=== PATIENT | female | born 1940 | race Caucasian/White ===

== ENCOUNTER → 2016-10-24 | Outpatient (CLI) | payer MEDICARE, OTHER ==
[~2016-10-24] MED LIST: ACIPHEX; ACIPHEX20 MG PO; ALPRAZOLAM0.5 MG PO; AMBIEN 5MG TABLE5 MG PO; AMBIEN5 MG PO; ATORVASTATIN; CALCIUM; CEFTIN 250250 MG/TAB PO; CEFTIN500 MG PO; CRANBERRY1 CAP PO; FLEXERIL5 MG PO; GLUCOSAMINE PO; INDERAL LA120 MG PO; LEVAQUIN 250MG250 MG PO; LEVAQUIN 750MG750 MG PO; LIPITOR 10MG10 MG PO; MACROBID 1100 MG/CAP PO; MULTIPLE VITAMI1 CAP PO; MULTIVITAMIN FO1 CAP PO; NORCO 325 MG-51 TAB PO; PRILOTC PO; PROPRANOLOL PO; PYRIDIUM200 M1 PO; TYLENOL #3 301 UDTAB PO; XANAX 0.5MG0.5 MG PO; XANAX0.5 MG PO; ZANTAC; ZANTAC 7575 MG PO; ZOFRAN 4MG T4 MG/TAB PO; citracal PO
== END ==
LOC: MC.RAD 09:38
DX: Z12.31 Encounter for screening mammogram for malignant neoplasm of breast (principal)

== ENCOUNTER → 2017-06-08 | Outpatient (CLI) | payer MEDICARE, OTHER | LOC: COL.RAD 07:57 | DX: K57.30 Diverticulosis of large intestine without perforation or abscess without bleeding (principal); M47.819 Spondylosis without myelopathy or radiculopathy, site unspecified | CPT/HCPCS: Q9967 ==

== ENCOUNTER 2017-06-23 15:19 | Emergency (ER) | payer MEDICARE, OTHER ==
[~2017-06-23] VITALS: Ht 157.5 cm; Wt 62.7 kg
[2017-06-23 15:20] VITALS: TEMP 98.1
[2017-06-23 15:58] LABS: BASO % 0.3 % (0.0-2.0); EOS # 0.1 (0.0-0.7); EOS % 0.7 % (0-4.0); GRAN # 10.3 (1.4-6.5); GRAN % 75.5 % (42.2-75.2); HEMATOCRIT 39.6 % (37.0-47.0); LYMPH # 2.4 (1.2-3.4); LYMPH % 17.8 % (20.0-51.0); MEAN CELL VOLUME 82 fl (80.0-100.0); MEAN CORPUSCULAR HEMOGLOBIN 27 pg (27.0-31.0); MEAN CORPUSCULAR HGB CONC 33 g/dl (33.0-37.0); MEAN PLATELET VOLUME 10.7 fl (7.4-10.4); MONO # 0.7 (0.1-0.6); MONO % 5.3 % (1.7-9.3); PLATELET COUNT 262 K/mm3 (130-400); RED BLOOD COUNT 4.82 M/mm3 (4.10-5.30); WHITE BLOOD COUNT 13.7 K/mm3 (4.8-10.8)
[2017-06-23 16:10] LABS: COLLECTION METHOD CLEAN CATCH
[2017-06-23 16:14] LABS: ADJUSTED CALCIUM 9.6 mg/dL (8.4-10.2); ALBUMIN 4.4 gm/dL (3.5-5.0); BILIRUBIN,TOTAL 1.6 mg/dL (0.0-1.0); CALCIUM 9.9 mg/dL (8.4-10.2); CREATININE, serum 0.59 mg/dL (0.52-1.25); POTASSIUM 3.9 mmol/L (3.4-5.0); TOTAL PROTEIN 7.5 gm/dL (6.4-8.2)
[2017-06-23 16:21] LABS: MUCOUS Present /lpf; PH 5 (5-8); SQUAMOUS EPITHELIAL 0-2 /hpf; URINE APPEARANCE Clear; URINE BACTERIA None Seen /hpf; URINE BILIRUBIN Negative (NEGATIVE); URINE BLOOD Negative (NEGATIVE); URINE COLOR Yellow; URINE GLUCOSE 1+ (NEGATIVE); URINE KETONE Negative (NEGATIVE); URINE LEUKOCYTE ESTERASE Negative (NEGATIVE); URINE PROTEIN(semi-quant) Negative (NEGATIVE); URINE RBC 0-2 /hpf; URINE UROBILINOGEN Negative (NEGATIVE); URINE WBC 0-2 /hpf
[2017-06-23] MEDS ORDERED: CALCIUM CITRATE1 TA7 PO (16:50)
[2017-06-23] MEDS ORDERED: ONE DAILY1 TA1 PO (16:51)
[2017-06-23] MEDS ORDERED: OSTEO-BI-FLEX 21 TAB PO (16:51)
[2017-06-23] MEDS ORDERED: FLAGYL500 MG PO (17:10)
[2017-06-23] MEDS ORDERED: CIPRO 500MG TA500 MG PO (17:10)
[2017-06-23] MEDS ORDERED: NORCO 325 MG-51 TAB PO (17:10)
[2017-06-23] MEDS ORDERED: ZOFRAN 4MG T4 MG/TAB PO (17:10)
[2017-06-23 17:15] VITALS: BP 145/86
[2017-06-23 17:48] VITALS: PULSE 74
== END 2017-06-23 17:48 | disposition home or self-care (01) ==
LOC: COL.ER 15:19
PROVIDERS: Emergency Medicine
DX: K57.92 Diverticulitis of intestine, part unspecified, without perforation or abscess without bleeding (principal); K21.9 Gastro-esophageal reflux disease without esophagitis; F41.9 Anxiety disorder, unspecified; Z90.49 Acquired absence of other specified parts of digestive tract
CPT/HCPCS: J7030; Q9967

== ENCOUNTER 2017-06-29 09:11 | Emergency (ER) | payer MEDICARE, OTHER ==
[~2017-06-29] VITALS: Ht 157.5 cm; Wt 62.7 kg
[~2017-06-29 09:11] MED LIST changes: +CALCIUM CITRATE1 TA7 PO; +CIPRO 500MG TA500 MG PO; +FLAGYL500 MG PO; +ONE DAILY1 TA1 PO; +OSTEO-BI-FLEX 21 TAB PO
[2017-06-29 09:13] VITALS: BP 183/87; TEMP 98
[2017-06-29 10:07] LABS: BASO % 0.2 % (0.0-2.0); EOS # 0.1 (0.0-0.7); EOS % 1.2 % (0-4.0); GRAN # 4.9 (1.4-6.5); GRAN % 60.5 % (42.2-75.2); HEMATOCRIT 41.4 % (37.0-47.0); HEMOGLOBIN 13.4 g/dl (12.5-16.0); LYMPH # 2.6 (1.2-3.4); LYMPH % 32.3 % (20.0-51.0); MEAN CELL VOLUME 84 fl (80.0-100.0); MEAN CORPUSCULAR HEMOGLOBIN 27 pg (27.0-31.0); MEAN CORPUSCULAR HGB CONC 32 g/dl (33.0-37.0); MEAN PLATELET VOLUME 10.4 fl (7.4-10.4); MONO # 0.5 (0.1-0.6); MONO % 5.6 % (1.7-9.3); PLATELET COUNT 292 K/mm3 (130-400); RED BLOOD COUNT 4.96 M/mm3 (4.10-5.30)
[2017-06-29 10:17] LABS: ADJUSTED CALCIUM 9.7 mg/dL (8.4-10.2); ALBUMIN 4.5 gm/dL (3.5-5.0); BILIRUBIN,TOTAL 1.4 mg/dL (0.0-1.0); CALCIUM 10.1 mg/dL (8.4-10.2); CREATININE, serum 0.68 mg/dL (0.52-1.25); TOTAL PROTEIN 7.7 gm/dL (6.4-8.2)
[2017-06-29 11:00] VITALS: PULSE 64
== END 2017-06-29 11:02 | disposition home or self-care (01) ==
LOC: COL.ER 09:11
PROVIDERS: Emergency Medicine
DX: K57.92 Diverticulitis of intestine, part unspecified, without perforation or abscess without bleeding (principal); K92.1 Melena; I10 Essential (primary) hypertension; E78.5 Hyperlipidemia, unspecified; K21.9 Gastro-esophageal reflux disease without esophagitis; Z90.89 Acquired absence of other organs; Z90.49 Acquired absence of other specified parts of digestive tract

== ENCOUNTER 2017-08-28 12:02 | Emergency (ER) | payer MEDICARE, OTHER ==
[~2017-08-28] VITALS: Ht 157.5 cm; Wt 62.7 kg
[2017-08-28 12:04] VITALS: BP 178/103; TEMP 97.9
[2017-08-28 13:17] VITALS: PULSE 78
== END 2017-08-28 13:17 | disposition home or self-care (01) ==
LOC: COL.ER 12:02
DX: B35.4 Tinea corporis (principal)

== ENCOUNTER → 2017-11-22 | Outpatient (CLI) | payer MEDICARE, OTHER | LOC: MC.RAD 13:57 | DX: Z12.31 Encounter for screening mammogram for malignant neoplasm of breast (principal) ==

== ENCOUNTER 2018-05-17 18:45 | Inpatient (IN) | payer MEDICARE, OTHER ==
[~2018-05-17] VITALS: Ht 160 cm; Wt 63.2 kg
[2018-05-17 20:04] LABS: BASO % 0.4 % (0.0-2.0); EOS % 0.3 % (0-4.0); GRAN % 73.7 % (42.2-75.2); HEMATOCRIT 40.6 % (37.0-47.0); HEMOGLOBIN 13.5 g/dl (12.5-16.0); LYMPH # 2.2 (1.2-3.4); MEAN CELL VOLUME 79 fl (80.0-100.0); MEAN CORPUSCULAR HEMOGLOBIN 26 pg (27.0-31.0); MEAN CORPUSCULAR HGB CONC 33 g/dl (33.0-37.0); MONO # 0.2 (0.1-0.6); MONO % 2.3 % (1.7-9.3); PLATELET COUNT 295 K/mm3 (130-400); RED BLOOD COUNT 5.17 M/mm3 (4.10-5.30); REDCELL DISTRIBUTION WIDTH-CV 13.4 % (11.5-14.5)
[2018-05-17 20:16] LABS: ALBUMIN 4.4 gm/dL (3.5-5.0); BILIRUBIN,TOTAL 1.8 mg/dL (0.0-1.0); CALCIUM 9.5 mg/dL (8.4-10.2); CREATININE, serum 0.47 mg/dL (0.52-1.25); POTASSIUM 3.7 mmol/L (3.4-5.0); TOTAL PROTEIN 7.6 gm/dL (6.4-8.2)
[2018-05-17 20:20] LABS: C-REACTIVE PROTEIN 0.5 mg/dL (0.0-0.9)
[2018-05-17 20:39] LABS: TROPONIN-I 0.82 ng/mL (0.000-0.034)
[2018-05-17] MEDS ORDERED: CLEOCIN HC150 MG/CAP PO (22:48)
[2018-05-17] MEDS ORDERED: OMNICEF 300MG300 MG PO (22:50)
[2018-05-17 22:54] VITALS: BP 170/91; PULSE 75; TEMP 98.5
[2018-05-18] VITALS (19 sets, daily range): BP systolic 130–163; BP diastolic 66–86; PULSE 60–74; TEMP 98.1–98.5
[2018-05-18 02:17] LABS: COLLECTION METHOD CLEAN CATCH
[2018-05-18 02:26] LABS: PH 7 (5-8); SQUAMOUS EPITHELIAL 0-2 /hpf; URINE APPEARANCE Clear; URINE BACTERIA None Seen /hpf; URINE BILIRUBIN Negative (NEGATIVE); URINE BLOOD Negative (NEGATIVE); URINE COLOR Yellow; URINE GLUCOSE 2+ (NEGATIVE); URINE KETONE Trace (NEGATIVE); URINE LEUKOCYTE ESTERASE Negative (NEGATIVE); URINE NITRATE Negative (NEGATIVE); URINE PROTEIN(semi-quant) Negative (NEGATIVE); URINE UROBILINOGEN Negative (NEGATIVE)
[2018-05-18 02:29] LABS: INR 0.9 (0.8-3.0); PROTHROMBIN TIME 10.4 SECONDS (9.7-12.8)
[2018-05-18 02:30] LABS: MAGNESIUM 1.8 mg/dL (1.6-2.3)
[2018-05-18 02:32] LABS: PARTIAL THROMBOPLASTIN TIME 32.7 SECONDS (26.0-37.0)
[2018-05-18 02:45] LABS: TROPONIN-I 6 HR POST INITIAL 1.5 ng/mL (0.000-0.034)
[2018-05-18 07:32] LABS: BASO % 0.2 % (0.0-2.0); EOS # 0.1 (0.0-0.7); EOS % 0.7 % (0-4.0); GRAN # 5.2 (1.4-6.5); GRAN % 61.7 % (42.2-75.2); HEMATOCRIT 40.6 % (37.0-47.0); HEMOGLOBIN 13.2 g/dl (12.5-16.0); LYMPH # 2.5 (1.2-3.4); LYMPH % 29.8 % (20.0-51.0); MEAN CELL VOLUME 81 fl (80.0-100.0); MEAN CORPUSCULAR HEMOGLOBIN 26 pg (27.0-31.0); MEAN CORPUSCULAR HGB CONC 33 g/dl (33.0-37.0); MEAN PLATELET VOLUME 10.4 fl (7.4-10.4); MONO # 0.6 (0.1-0.6); MONO % 7.4 % (1.7-9.3); PLATELET COUNT 302 K/mm3 (130-400); RED BLOOD COUNT 5.02 M/mm3 (4.10-5.30); REDCELL DISTRIBUTION WIDTH-CV 13.5 % (11.5-14.5)
[2018-05-18 07:41] LABS: ALBUMIN 3.9 gm/dL (3.5-5.0); BILIRUBIN,TOTAL 2.1 mg/dL (0.0-1.0); CALCIUM 8.8 mg/dL (8.4-10.2); CHOLESTEROL RISK RATIO 2.7; CREATININE, serum 0.43 mg/dL (0.52-1.25); POTASSIUM 3.5 mmol/L (3.4-5.0)
[2018-05-18 07:53] LABS: TROPONIN-I 1.25 ng/mL (0.000-0.034)
[2018-05-18 15:23] LABS: CALCIUM 8.7 mg/dL (8.4-10.2); CREATININE, serum 0.46 mg/dL (0.52-1.25); POTASSIUM 3.3 mmol/L (3.4-5.0)
[2018-05-19 04:46] VITALS: BP 152/79; PULSE 65; TEMP 98.3
[2018-05-19 06:56] VITALS: BP 152/74; PULSE 62; TEMP 97.9
[2018-05-19 08:23] LABS: CALCIUM 9.4 mg/dL (8.4-10.2); CREATININE, serum 0.56 mg/dL (0.52-1.25); POTASSIUM 3.7 mmol/L (3.4-5.0)
[2018-05-19 08:30] LABS: BASO % 0.3 % (0.0-2.0); EOS # 0.1 (0.0-0.7); EOS % 0.5 % (0-4.0); GRAN # 7.4 (1.4-6.5); GRAN % 67.7 % (42.2-75.2); HEMATOCRIT 43.3 % (37.0-47.0); HEMOGLOBIN 14.3 g/dl (12.5-16.0); LYMPH # 2.6 (1.2-3.4); LYMPH % 23.7 % (20.0-51.0); MEAN CELL VOLUME 79 fl (80.0-100.0); MEAN CORPUSCULAR HEMOGLOBIN 26 pg (27.0-31.0); MEAN CORPUSCULAR HGB CONC 33 g/dl (33.0-37.0); MEAN PLATELET VOLUME 10.5 fl (7.4-10.4); MONO # 0.8 (0.1-0.6); MONO % 7.3 % (1.7-9.3); PLATELET COUNT 362 K/mm3 (130-400); RED BLOOD COUNT 5.45 M/mm3 (4.10-5.30); REDCELL DISTRIBUTION WIDTH-CV 13.7 % (11.5-14.5)
[2018-05-19 08:40] LABS: TROPONIN-I 1.07 ng/mL (0.000-0.034)
[2018-05-19 11:44] VITALS: BP 130/65; PULSE 78; TEMP 97.8
[2018-05-19 15:27] VITALS: BP 129/60; PULSE 66; TEMP 97.9
[2018-05-19 19:20] VITALS: BP 117/59; PULSE 64; TEMP 98.6
[2018-05-19 20:19] LABS: CALCIUM 9.3 mg/dL (8.4-10.2); CREATININE, serum 0.56 mg/dL (0.52-1.25); POTASSIUM 3.7 mmol/L (3.4-5.0)
[2018-05-20 00:15] VITALS: BP 138/59; PULSE 63; TEMP 98.3
[2018-05-20 05:00] VITALS: BP 132/64; PULSE 70
[2018-05-20 06:14] LABS: ALBUMIN 3.4 gm/dL (3.5-5.0); BILIRUBIN,TOTAL 1.4 mg/dL (0.0-1.0); CALCIUM 9.2 mg/dL (8.4-10.2); CREATININE, serum 0.58 mg/dL (0.52-1.25); MAGNESIUM 2.1 mg/dL (1.6-2.3); POTASSIUM 4.2 mmol/L (3.4-5.0); TOTAL PROTEIN 6.3 gm/dL (6.4-8.2)
[2018-05-20 07:20] VITALS: BP 123/52; PULSE 70; TEMP 97.6
[2018-05-20] MEDS ORDERED: ASPIRIN E.C. 8181 MG PO (09:18)
[2018-05-20] MEDS ORDERED: TYLENOL 325MG325 MG PO (09:18)
[2018-05-20] MEDS ORDERED: ALTACE 2.5MG T2.5 MG PO (09:19)
[2018-05-20] MEDS ORDERED: TOPROL XL 25MG25 MG PO (09:19)
[2018-05-20] MEDS ORDERED: ZOFRAN 4MG T4 MG/TAB PO (09:19)
[2018-05-20] MEDS ORDERED: ALDACTONE 25MG25 M1 PO (09:19)
[2018-05-20] MEDS ORDERED: BRILINTA90 MG PO (09:19)
[2018-05-20] MEDS ORDERED: NITROSTAT0.4 MG/TAB SL (09:19)
[2018-05-20] MEDS ORDERED: OMNICEF 300MG300 MG PO (09:22)
== END 2018-05-20 12:30 | disposition home or self-care (01) | DRG 247 ==
LOC: COL.ER 18:45 → MEDICAL 21:14
PROVIDERS: Emergency Medicine; Hospitalist; Internal Medicine; Internal Medicine Cardiovascular Disease; Nurse Practitioner Family
PROC: B2111ZZ Fluoroscopy of Multiple Coronary Arteries using Low Osmolar Contrast (ICD-10-PCS; principal; 2018-05-18)
PROC: 027034Z Dilation of Coronary Artery, One Artery with Drug-eluting Intraluminal Device, Percutaneous Approach (ICD-10-PCS; 2018-05-18)
PROC: B2151ZZ Fluoroscopy of Left Heart using Low Osmolar Contrast (ICD-10-PCS; 2018-05-18)
PROC: 4A023N7 Measurement of Cardiac Sampling and Pressure, Left Heart, Percutaneous Approach (ICD-10-PCS; 2018-05-18)
DX: I21.4 Non-ST elevation (NSTEMI) myocardial infarction (principal); E87.1 Hypo-osmolality and hyponatremia; I10 Essential (primary) hypertension; E78.5 Hyperlipidemia, unspecified; J01.00 Acute maxillary sinusitis, unspecified; E87.6 Hypokalemia
CPT/HCPCS: 99222-AI; 99233-AI; 99239; C1725; C1769; C1874; C9600; G0378; J0583; J1200; J1644; J1650; J2250; J2270; J2405; J3010; J7030; J7131

== ENCOUNTER 2018-05-21 04:02 | Emergency (ER) | payer MEDICARE, OTHER ==
[~2018-05-21] VITALS: Ht 160 cm; Wt 59.1 kg
[~2018-05-21 04:02] MED LIST changes: +ALDACTONE 25MG25 M1 PO; +ALTACE 2.5MG T2.5 MG PO; +ASPIRIN E.C. 8181 MG PO; +BRILINTA90 MG PO; +CLEOCIN HC150 MG/CAP PO; +NITROSTAT0.4 MG/TAB SL; +OMNICEF 300MG300 MG PO; +TOPROL XL 25MG25 MG PO; +TYLENOL 325MG325 MG PO
[2018-05-21 04:11] VITALS: TEMP 98.3
[2018-05-21 04:45] LABS: COLLECTION METHOD CLEAN CATCH
[2018-05-21 04:53] LABS: MUCOUS Present /lpf; PH 5 (5-8); SQUAMOUS EPITHELIAL 0-2 /hpf; URINE APPEARANCE Clear; URINE BACTERIA None Seen /hpf; URINE BILIRUBIN Negative (NEGATIVE); URINE BLOOD 1+ (NEGATIVE); URINE COLOR Yellow; URINE GLUCOSE Negative (NEGATIVE); URINE KETONE Trace (NEGATIVE); URINE LEUKOCYTE ESTERASE Trace (NEGATIVE); URINE NITRATE Negative (NEGATIVE); URINE PROTEIN(semi-quant) Negative (NEGATIVE); URINE RBC 0-2 /hpf; URINE UROBILINOGEN Negative (NEGATIVE)
[2018-05-21 05:13] LABS: BASO # 0.1 (0.0-0.2); BASO % 0.6 % (0.0-2.0); EOS # 0.2 (0.0-0.7); EOS % 2.1 % (0-4.0); GRAN # 4.4 (1.4-6.5); GRAN % 50.3 % (42.2-75.2); HEMATOCRIT 38.3 % (37.0-47.0); HEMOGLOBIN 12.5 g/dl (12.5-16.0); LYMPH # 3.2 (1.2-3.4); LYMPH % 36.6 % (20.0-51.0); MEAN CELL VOLUME 82 fl (80.0-100.0); MEAN CORPUSCULAR HEMOGLOBIN 27 pg (27.0-31.0); MEAN CORPUSCULAR HGB CONC 33 g/dl (33.0-37.0); MONO # 0.9 (0.1-0.6); MONO % 9.8 % (1.7-9.3); PLATELET COUNT 275 K/mm3 (130-400); RED BLOOD COUNT 4.68 M/mm3 (4.10-5.30); REDCELL DISTRIBUTION WIDTH-CV 14.1 % (11.5-14.5)
[2018-05-21 05:25] LABS: ALBUMIN 3.9 gm/dL (3.5-5.0); BILIRUBIN,TOTAL 1.2 mg/dL (0.0-1.0); CALCIUM 9.8 mg/dL (8.4-10.2); CREATININE, serum 0.58 mg/dL (0.52-1.25); POTASSIUM 4.3 mmol/L (3.4-5.0)
[2018-05-21 05:47] VITALS: BP 127/81; PULSE 74
== END 2018-05-21 05:47 | disposition home or self-care (01) ==
LOC: COL.ER 04:02
PROVIDERS: Emergency Medicine
DX: F41.9 Anxiety disorder, unspecified (principal); G47.00 Insomnia, unspecified; I25.10 Atherosclerotic heart disease of native coronary artery without angina pectoris; I10 Essential (primary) hypertension; Z79.82 Long term (current) use of aspirin

== ENCOUNTER 2018-06-30 05:50 | Emergency (ER) | payer MEDICARE, OTHER ==
[~2018-06-30] VITALS: Ht 157.5 cm; Wt 58.5 kg
[2018-06-30 05:55] VITALS: TEMP 98.3
[2018-06-30] MEDS ORDERED: XANAX 0.5MG0.5 MG PO (06:18)
[2018-06-30] MEDS ORDERED: LIPITOR 10MG10 MG PO (06:19)
[2018-06-30] MEDS ORDERED: TYLENOL 325MG325 MG PO (06:19)
[2018-06-30] MEDS ORDERED: ASPIRIN 81M81 MG/TA2 PO (06:19)
[2018-06-30] MEDS ORDERED: GLUCOSAMINE & C1 TAB PO (06:20)
[2018-06-30] MEDS ORDERED: CALCIUM 600MG+D1 TAB PO (06:20)
[2018-06-30] MEDS ORDERED: MULTI VITAMINS1 TAB PO (06:21)
[2018-06-30] MEDS ORDERED: TOPROL XL 25MG25 MG PO (06:21)
[2018-06-30] MEDS ORDERED: NITROSTAT0.4 MG/TAB SL (06:21)
[2018-06-30] MEDS ORDERED: ALTACE 2.5MG T2.5 MG PO (06:22)
[2018-06-30] MEDS ORDERED: PRILOSEC 20MG20 MG PO (06:22)
[2018-06-30] MEDS ORDERED: ALDACTONE 25MG25 M1 PO (06:23)
[2018-06-30] MEDS ORDERED: AMBIEN 5MG TABLE5 MG PO (06:23)
[2018-06-30] MEDS ORDERED: BRILINTA90 MG PO (06:23)
[2018-06-30 06:25] LABS: COLLECTION METHOD CLEAN CATCH
[2018-06-30 06:27] LABS: BASO % 0.5 % (0.0-2.0); EOS # 0.2 (0.0-0.7); EOS % 1.8 % (0-4.0); GRAN # 4.7 (1.4-6.5); GRAN % 55.7 % (42.2-75.2); HEMATOCRIT 41.4 % (37.0-47.0); HEMOGLOBIN 13.1 g/dl (12.5-16.0); LYMPH # 3.1 (1.2-3.4); LYMPH % 36.7 % (20.0-51.0); MEAN CELL VOLUME 84 fl (80.0-100.0); MEAN CORPUSCULAR HEMOGLOBIN 27 pg (27.0-31.0); MEAN CORPUSCULAR HGB CONC 32 g/dl (33.0-37.0); MEAN PLATELET VOLUME 10.4 fl (7.4-10.4); MONO # 0.4 (0.1-0.6); MONO % 5.2 % (1.7-9.3); PLATELET COUNT 273 K/mm3 (130-400); RED BLOOD COUNT 4.94 M/mm3 (4.10-5.30); REDCELL DISTRIBUTION WIDTH-CV 14.1 % (11.5-14.5)
[2018-06-30 06:35] LABS: PROTHROMBIN TIME 10.9 SECONDS (9.7-12.8)
[2018-06-30 06:37] LABS: PARTIAL THROMBOPLASTIN TIME 34.6 SECONDS (26.0-37.0)
[2018-06-30 06:58] LABS: MUCOUS Present /lpf; PH 5 (5-8); SQUAMOUS EPITHELIAL None Seen /hpf; URINE APPEARANCE Cloudy; URINE BACTERIA None Seen /hpf; URINE BILIRUBIN Negative (NEGATIVE); URINE BLOOD 3+ (NEGATIVE); URINE CALCIUM OXALATE CRYSTAL Present /hpf; URINE COLOR Red; URINE GLUCOSE 1+ (NEGATIVE); URINE KETONE Negative (NEGATIVE); URINE LEUKOCYTE ESTERASE Trace (NEGATIVE); URINE NITRATE Positive (NEGATIVE); URINE PROTEIN(semi-quant) 2+ (NEGATIVE); URINE RBC >50 /hpf; URINE UROBILINOGEN Negative (NEGATIVE)
[2018-06-30 07:14] VITALS: BP 152/90; PULSE 84
[2018-06-30] MEDS ORDERED: CEFTIN500 MG PO (07:18)
== END 2018-06-30 07:41 | disposition home or self-care (01) ==
LOC: COL.ER 05:50
PROVIDERS: Emergency Medicine
DX: N30.91 Cystitis, unspecified with hematuria (principal); E78.5 Hyperlipidemia, unspecified; I10 Essential (primary) hypertension; I25.10 Atherosclerotic heart disease of native coronary artery without angina pectoris; I25.2 Old myocardial infarction; Z79.82 Long term (current) use of aspirin; Z98.890 Other specified postprocedural states

== ENCOUNTER → 2018-07-17 | Outpatient (CLI) | payer MEDICARE, OTHER ==
[~2018-07-17] MED LIST changes: +ASPIRIN 81M81 MG/TA2 PO; +CALCIUM 600MG+D1 TAB PO; +GLUCOSAMINE & C1 TAB PO; +MULTI VITAMINS1 TAB PO; +PRILOSEC 20MG20 MG PO
[2018-07-17 17:05] LABS: BASO # 0.1 (0.0-0.2); BASO % 0.5 % (0.0-2.0); EOS # 0.1 (0.0-0.7); EOS % 0.9 % (0-4.0); GRAN # 5.7 (1.4-6.5); HEMATOCRIT 39.9 % (37.0-47.0); HEMOGLOBIN 12.8 g/dl (12.5-16.0); LYMPH # 2.7 (1.2-3.4); LYMPH % 29.3 % (20.0-51.0); MEAN CELL VOLUME 83 fl (80.0-100.0); MEAN CORPUSCULAR HEMOGLOBIN 27 pg (27.0-31.0); MEAN CORPUSCULAR HGB CONC 32 g/dl (33.0-37.0); MEAN PLATELET VOLUME 10.2 fl (7.4-10.4); MONO # 0.8 (0.1-0.6); PLATELET COUNT 309 K/mm3 (130-400)
[2018-07-17 17:16] LABS: ALBUMIN 4.3 gm/dL (3.5-5.0); BILIRUBIN,TOTAL 1.2 mg/dL (0.0-1.0); CALCIUM 10.1 mg/dL (8.4-10.2); CREATININE, serum 0.57 mg/dL (0.52-1.25); TOTAL PROTEIN 7.3 gm/dL (6.4-8.2)
== END ==
LOC: COL.RAD 16:23 → COL.LAB 16:32 → COL.RAD 16:32
PROVIDERS: Internal Medicine
DX: K57.30 Diverticulosis of large intestine without perforation or abscess without bleeding (principal); K59.8 Other specified functional intestinal disorders; M41.86 Other forms of scoliosis, lumbar region; Z90.49 Acquired absence of other specified parts of digestive tract
CPT/HCPCS: Q9967

== ENCOUNTER 2018-07-19 11:18 | Emergency (ER) | payer MEDICARE, OTHER ==
[~2018-07-19] VITALS: Ht 157.5 cm; Wt 57.3 kg
[2018-07-19 11:24] VITALS: TEMP 96.8
[2018-07-19] MEDS ORDERED: CIPRO 500MG TA500 MG PO (11:56)
[2018-07-19] MEDS ORDERED: FLAGYL500 MG PO (11:57)
[2018-07-19 12:33] LABS: BASO # 0.1 (0.0-0.2); BASO % 0.5 % (0.0-2.0); EOS # 0.1 (0.0-0.7); EOS % 0.8 % (0-4.0); GRAN # 7.2 (1.4-6.5); GRAN % 71.2 % (42.2-75.2); HEMATOCRIT 41.4 % (37.0-47.0); HEMOGLOBIN 13.4 g/dl (12.5-16.0); LYMPH # 2.2 (1.2-3.4); LYMPH % 21.3 % (20.0-51.0); MEAN CELL VOLUME 83 fl (80.0-100.0); MEAN CORPUSCULAR HEMOGLOBIN 27 pg (27.0-31.0); MEAN CORPUSCULAR HGB CONC 32 g/dl (33.0-37.0); MEAN PLATELET VOLUME 10.4 fl (7.4-10.4); MONO # 0.6 (0.1-0.6); MONO % 5.8 % (1.7-9.3); PLATELET COUNT 325 K/mm3 (130-400); RED BLOOD COUNT 4.99 M/mm3 (4.10-5.30); REDCELL DISTRIBUTION WIDTH-CV 14.2 % (11.5-14.5)
[2018-07-19 13:28] LABS: ALANINE AMINOTRANSFERASE 46 U/L (9-52); ALBUMIN 4.3 gm/dL (3.5-5.0); ALKALINE PHOSPHATASE 85 U/L (50-136); ANION GAP 7 mmol/L (7-16); AST,SGOT 44 U/L (15-37); BILIRUBIN,TOTAL 1.7 mg/dL (0.0-1.0); BLOOD UREA NITROGEN 11 mg/dL (7-17); CARBON DIOXIDE 27 mmol/L (22-30); CHLORIDE 103 mmol/L (98-107); CREATININE, serum 0.59 mg/dL (0.52-1.25); GLUCOSE 109 mg/dL (74-106); POTASSIUM 3.8 mmol/L (3.4-5.0); SODIUM 137 mmol/L (137-145); TOTAL PROTEIN 7.1 gm/dL (6.4-8.2)
[2018-07-19 13:29] LABS: C-REACTIVE PROTEIN < 0.5 mg/dL (0.0-0.9)
[2018-07-19 14:31] VITALS: BP 150/82; PULSE 81
== END 2018-07-19 14:31 | disposition home or self-care (01) ==
LOC: COL.ER 11:18
PROVIDERS: Emergency Medicine
DX: K52.9 Noninfective gastroenteritis and colitis, unspecified (principal); Z79.82 Long term (current) use of aspirin
CPT/HCPCS: J7030

== ENCOUNTER 2018-08-10 13:22 | Day surgery (SDC) | payer MEDICARE, OTHER ==
[~2018-08-10] VITALS: Ht 157.5 cm; Wt 57.6 kg
[2018-08-10 13:47] VITALS: BP 157/113; PULSE 110; TEMP 97
[2018-08-10 15:40] VITALS: BP 164/89; PULSE 16; TEMP 97
[2018-08-10 15:45] VITALS: BP 146/86; PULSE 94
[2018-08-10 16:00] VITALS: BP 153/86; PULSE 83
[2018-08-10 16:15] VITALS: BP 150/90; PULSE 87
== END 2018-08-10 16:50 | disposition home or self-care (01) ==
LOC: SDCO 13:22
DX: K57.30 Diverticulosis of large intestine without perforation or abscess without bleeding (principal); A04.72 Enterocolitis due to Clostridium difficile, not specified as recurrent; R19.7 Diarrhea, unspecified; K92.1 Melena; K22.70 Barrett's esophagus without dysplasia; K64.8 Other hemorrhoids; F41.9 Anxiety disorder, unspecified; K29.70 Gastritis, unspecified, without bleeding; K21.0 Gastro-esophageal reflux disease with esophagitis; I07.1 Rheumatic tricuspid insufficiency; I25.2 Old myocardial infarction; M19.042 Primary osteoarthritis, left hand; M19.041 Primary osteoarthritis, right hand; N39.0 Urinary tract infection, site not specified; Z88.0 Allergy status to penicillin; Z88.8 Allergy status to other drugs, medicaments and biological substances; Z90.49 Acquired absence of other specified parts of digestive tract
CPT/HCPCS: J2250; J2704; J3010; J7120

== ENCOUNTER 2018-09-05 13:05 | Outpatient (RCR) | payer MEDICARE, OTHER | END 2018-09-16 | disposition home or self-care (01) | LOC: COL.CR | DX: Z48.812 Encounter for surgical aftercare following surgery on the circulatory system (principal); Z95.5 Presence of coronary angioplasty implant and graft ==

== ENCOUNTER 2018-10-15 15:35 | Outpatient (RCR) | payer MEDICARE, OTHER | END 2018-10-17 05:44 | disposition home or self-care (01) | LOC: COL.CR 15:35 | DX: Z48.812 Encounter for surgical aftercare following surgery on the circulatory system (principal); I25.2 Old myocardial infarction; Z95.5 Presence of coronary angioplasty implant and graft ==

== ENCOUNTER 2018-10-20 10:43 | Emergency (ER) | payer MEDICARE, OTHER ==
[~2018-10-20] VITALS: Ht 157.5 cm; Wt 60.3 kg
[2018-10-20 10:52] VITALS: TEMP 97.7
[2018-10-20 11:44] LABS: BASO # 0.1 (0.0-0.2); BASO % 0.4 % (0.0-2.0); EOS # 0.1 (0.0-0.7); EOS % 0.7 % (0-4.0); GRAN # 9.5 (1.4-6.5); GRAN % 73.4 % (42.2-75.2); HEMATOCRIT 40.9 % (37.0-47.0); HEMOGLOBIN 13.2 g/dl (12.5-16.0); INR 0.9 (0.8-3.0); LYMPH # 2.5 (1.2-3.4); LYMPH % 19.3 % (20.0-51.0); MEAN CELL VOLUME 84 fl (80.0-100.0); MEAN CORPUSCULAR HEMOGLOBIN 27 pg (27.0-31.0); MEAN CORPUSCULAR HGB CONC 32 g/dl (33.0-37.0); MEAN PLATELET VOLUME 10.7 fl (7.4-10.4); MONO # 0.7 (0.1-0.6); MONO % 5.7 % (1.7-9.3); PLATELET COUNT 261 K/mm3 (130-400); PROTHROMBIN TIME 10.6 SECONDS (9.7-12.8); RED BLOOD COUNT 4.88 M/mm3 (4.10-5.30); REDCELL DISTRIBUTION WIDTH-CV 13.9 % (11.5-14.5)
[2018-10-20 11:50] LABS: ALANINE AMINOTRANSFERASE 26 U/L (9-52); ALKALINE PHOSPHATASE 90 U/L (50-136); ANION GAP 7 mmol/L (7-16); AST,SGOT 31 U/L (15-37); BILIRUBIN,TOTAL 1.3 mg/dL (0.0-1.0); BLOOD UREA NITROGEN 16 mg/dL (7-17); CALCIUM 9.9 mg/dL (8.4-10.2); CARBON DIOXIDE 27 mmol/L (22-30); CHLORIDE 103 mmol/L (98-107); CREATININE, serum 0.61 mg/dL (0.52-1.25); GLUCOSE 85 mg/dL (74-106); LIPASE 223 U/L (23-300); POTASSIUM 4.3 mmol/L (3.4-5.0); SODIUM 138 mmol/L (137-145); TOTAL PROTEIN 6.9 gm/dL (6.4-8.2)
[2018-10-20 11:51] LABS: C-REACTIVE PROTEIN < 0.5 mg/dL (0.0-0.9)
[2018-10-20 11:58] LABS: COLLECTION METHOD CLEAN CATCH
[2018-10-20 12:05] LABS: PH 7 (5-8); SQUAMOUS EPITHELIAL 0-2 /hpf; URINE APPEARANCE Clear; URINE BACTERIA None Seen /hpf; URINE BILIRUBIN Negative (NEGATIVE); URINE BLOOD Negative (NEGATIVE); URINE COLOR Yellow; URINE GLUCOSE Negative (NEGATIVE); URINE KETONE Negative (NEGATIVE); URINE LEUKOCYTE ESTERASE Negative (NEGATIVE); URINE NITRATE Negative (NEGATIVE); URINE PROTEIN(semi-quant) Negative (NEGATIVE); URINE RBC 0-2 /hpf; URINE UROBILINOGEN Negative (NEGATIVE)
[2018-10-20 13:05] VITALS: BP 120/73; PULSE 64
== END 2018-10-20 13:21 | disposition home or self-care (01) ==
LOC: COL.ER 10:43
PROVIDERS: Family Medicine
DX: K59.00 Constipation, unspecified (principal); I10 Essential (primary) hypertension; I25.10 Atherosclerotic heart disease of native coronary artery without angina pectoris
CPT/HCPCS: J2270; J2405; J7030

== ENCOUNTER → 2019-01-25 | Outpatient (CLI) | payer MEDICARE, OTHER | LOC: MC.RAD 12-28 14:00 | DX: Z12.31 Encounter for screening mammogram for malignant neoplasm of breast (principal) ==

== ENCOUNTER → 2019-05-21 | Outpatient (CLI) | payer MEDICARE, OTHER | LOC: COL.RAD 10:47 | DX: N95.0 Postmenopausal bleeding (principal) ==

== ENCOUNTER → 2019-09-25 | Outpatient (CLI) | payer MEDICARE, OTHER | LOC: COL.RAD 09:07 | DX: Z01.812 Encounter for preprocedural laboratory examination (principal); R31.0 Gross hematuria | CPT/HCPCS: Q9967 ==

== ENCOUNTER 2019-10-04 23:37 | Emergency (ER) | payer MEDICARE, OTHER ==
[~2019-10-04] VITALS: Ht 157.5 cm; Wt 64.5 kg
[2019-10-05 00:10] VITALS: BP 190/84; TEMP 97.4
[2019-10-05 00:42] LABS: BASO % 0.1 % (0.0-2.0); GRAN # 10.8 (1.4-6.5); GRAN % 87.6 % (42.2-75.2); HEMATOCRIT 41.8 % (37.0-47.0); HEMOGLOBIN 13.7 g/dl (12.5-16.0); LYMPH # 1.1 (1.2-3.4); LYMPH % 8.6 % (20.0-51.0); MEAN CELL VOLUME 82 fl (80.0-100.0); MEAN CORPUSCULAR HEMOGLOBIN 27 pg (27.0-31.0); MEAN CORPUSCULAR HGB CONC 33 g/dl (33.0-37.0); MEAN PLATELET VOLUME 10.5 fl (7.4-10.4); MONO # 0.4 (0.1-0.6); MONO % 2.9 % (1.7-9.3); PLATELET COUNT 259 K/mm3 (130-400); REDCELL DISTRIBUTION WIDTH-CV 13.2 % (11.5-14.5)
[2019-10-05 00:56] LABS: ALBUMIN 4.8 gm/dL (3.5-5.0); BILIRUBIN,TOTAL 1.7 mg/dL (0.0-1.0); CREATININE, serum 0.54 (0.52-1.25); POTASSIUM 4.1 mmol/L (3.4-5.0); TOTAL PROTEIN 7.8 gm/dL (6.4-8.2)
[2019-10-05 03:48] VITALS: PULSE 98
== END 2019-10-05 03:48 | disposition home or self-care (01) ==
LOC: COL.ER 23:37
PROVIDERS: Emergency Medicine
DX: F41.9 Anxiety disorder, unspecified (principal); R11.10 Vomiting, unspecified; R51 Headache; I10 Essential (primary) hypertension; I25.10 Atherosclerotic heart disease of native coronary artery without angina pectoris; E78.5 Hyperlipidemia, unspecified; Z95.5 Presence of coronary angioplasty implant and graft; Z79.82 Long term (current) use of aspirin
CPT/HCPCS: J2060; J2405; J3010; J7030

== ENCOUNTER 2020-05-27 08:44 | Emergency (ER) | payer MEDICARE, OTHER ==
[~2020-05-27] VITALS: Ht 157.5 cm; Wt 64.5 kg
[2020-05-27 08:55] VITALS: TEMP 97.7
[2020-05-27 10:21] LABS: BASO % 0.3 % (0.0-2.0); EOS % 0.2 % (0-4.0); GRAN # 12.5 (1.4-6.5); GRAN % 79.7 % (42.2-75.2); HEMOGLOBIN 13.4 g/dl (12.5-16.0); LYMPH # 2.2 (1.2-3.4); LYMPH % 13.8 % (20.0-51.0); MEAN CELL VOLUME 85 fl (80.0-100.0); MEAN CORPUSCULAR HEMOGLOBIN 27 pg (27.0-31.0); MEAN CORPUSCULAR HGB CONC 32 g/dl (33.0-37.0); MEAN PLATELET VOLUME 10.6 fl (7.4-10.4); MONO # 0.9 (0.1-0.6); MONO % 5.6 % (1.7-9.3); PLATELET COUNT 249 K/mm3 (130-400); RED BLOOD COUNT 4.94 M/mm3 (4.10-5.30); REDCELL DISTRIBUTION WIDTH-CV 13.3 % (11.5-14.5)
[2020-05-27 10:36] LABS: ALANINE AMINOTRANSFERASE 25 U/L (4-34); ALBUMIN 4.5 gm/dL (3.5-5.0); ALKALINE PHOSPHATASE 90 U/L (50-136); ANION GAP 7 mmol/L (7-16); AST,SGOT 34 U/L (15-37); BILIRUBIN,TOTAL 1.7 mg/dL (0.0-1.0); BLOOD UREA NITROGEN 15 mg/dL (7-17); CALCIUM 10.1 mg/dL (8.4-10.2); CARBON DIOXIDE 27 mmol/L (22-30); CHLORIDE 103 mmol/L (98-107); CREATININE, serum 0.71 (0.52-1.25); GLUCOSE 108 mg/dL (74-106); LIPASE 179 U/L (23-300); POTASSIUM 3.8 mmol/L (3.4-5.0); SODIUM 136 mmol/L (137-145); TOTAL PROTEIN 7.3 gm/dL (6.4-8.2)
[2020-05-27 10:39] LABS: C-REACTIVE PROTEIN < 0.5 mg/dL (0.0-0.9)
[2020-05-27] MEDS ORDERED: FLAGYL500 MG PO (13:09)
[2020-05-27] MEDS ORDERED: CIPRO 500MG TA500 MG PO (13:09)
[2020-05-27 13:45] VITALS: BP 134/83; PULSE 89
== END 2020-05-27 13:43 | disposition home or self-care (01) ==
LOC: COL.ER 08:44
PROVIDERS: Emergency Medicine
DX: K57.92 Diverticulitis of intestine, part unspecified, without perforation or abscess without bleeding (principal); Z90.49 Acquired absence of other specified parts of digestive tract; Z88.0 Allergy status to penicillin; Z88.1 Allergy status to other antibiotic agents; Z79.82 Long term (current) use of aspirin
CPT/HCPCS: J2270; J7030; Q9967

== ENCOUNTER 2021-01-24 15:08 | Emergency (ER) | payer MEDICARE, OTHER ==
[~2021-01-24] VITALS: Ht 157.5 cm; Wt 63.2 kg
[2021-01-24 15:24] VITALS: TEMP 98
[2021-01-24 15:53] LABS: COLLECTION METHOD CLEAN CATCH
[2021-01-24] MEDS ORDERED: PEPCID 20MG TAB20 MG PO (15:55)
[2021-01-24 16:15] LABS: PH 6 (5-8); URINE APPEARANCE Hazy; URINE BACTERIA Rare /hpf; URINE BILIRUBIN Negative (NEGATIVE); URINE BLOOD Negative (NEGATIVE); URINE COLOR Yellow; URINE GLUCOSE Negative (NEGATIVE); URINE KETONE Negative (NEGATIVE); URINE LEUKOCYTE ESTERASE 1+ (NEGATIVE); URINE NITRATE Negative (NEGATIVE); URINE PROTEIN(semi-quant) Negative (NEGATIVE); URINE RBC 0-2 /hpf; URINE UROBILINOGEN Negative (NEGATIVE)
[2021-01-24 16:29] LABS: BASO % 0.3 % (0.0-2.0); EOS # 0.1 (0.0-0.7); EOS % 1.1 % (0-4.0); GRAN # 6.4 (1.4-6.5); GRAN % 60.2 % (42.2-75.2); HEMATOCRIT 39.2 % (37.0-47.0); HEMOGLOBIN 12.5 g/dl (12.5-16.0); LYMPH # 3.3 (1.2-3.4); LYMPH % 31.3 % (20.0-51.0); MEAN CELL VOLUME 85 fl (80.0-100.0); MEAN CORPUSCULAR HEMOGLOBIN 27 pg (27.0-31.0); MEAN CORPUSCULAR HGB CONC 32 g/dl (33.0-37.0); MEAN PLATELET VOLUME 11.1 fl (7.4-10.4); MONO # 0.7 (0.1-0.6); MONO % 6.8 % (1.7-9.3); PLATELET COUNT 229 K/mm3 (130-400); RED BLOOD COUNT 4.64 M/mm3 (4.10-5.30); REDCELL DISTRIBUTION WIDTH-CV 13.3 % (11.5-14.5)
[2021-01-24 16:42] LABS: BILIRUBIN,TOTAL 1.3 mg/dL (0.0-1.0); CALCIUM 9.5 mg/dL (8.4-10.2); CREATININE, serum 0.63 (0.52-1.25); POTASSIUM 3.7 mmol/L (3.4-5.0); TOTAL PROTEIN 6.6 gm/dL (6.4-8.2)
[2021-01-24 18:08] VITALS: BP 142/80; PULSE 64
== END 2021-01-24 18:08 | disposition home or self-care (01) ==
LOC: COL.ER 15:08
PROVIDERS: Emergency Medicine
DX: N39.0 Urinary tract infection, site not specified (principal); Z90.49 Acquired absence of other specified parts of digestive tract; Z86.73 Personal history of transient ischemic attack (TIA), and cerebral infarction without residual deficits; Z91.040 Latex allergy status; Z88.1 Allergy status to other antibiotic agents; Z88.0 Allergy status to penicillin
CPT/HCPCS: Q9967

== ENCOUNTER → 2022-01-18 | Outpatient (CLI) | payer MEDICARE, OTHER ==
[~2022-01-18] MED LIST changes: +PEPCID 20MG TAB20 MG PO
== END ==
LOC: MC.RAD 14:23
DX: Z12.31 Encounter for screening mammogram for malignant neoplasm of breast (principal)

== ENCOUNTER 2022-04-25 21:56 | Inpatient (IN) | payer MEDICARE, OTHER ==
[~2022-04-25] VITALS: Ht 157.5 cm; Wt 63.6 kg
[2022-04-25 23:16] LABS: BASO # 0.1 K/mm3 (0.0-0.2); BASO % 0.4 % (0.0-2.0); EOS # 0.1 K/mm3 (0.0-0.7); EOS % 0.9 % (0.0-4.0); GRAN # 9.1 K/mm3 (1.4-6.5); GRAN % 65.9 % (42.2-75.2); HEMATOCRIT 38.8 % (37.0-47.0); HEMOGLOBIN 12.8 g/dl (12.5-16.0); LYMPH # 3.3 K/mm3 (1.2-3.4); MEAN CELL VOLUME 83 fl (80.0-100.0); MEAN CORPUSCULAR HEMOGLOBIN 27 pg (27-31); MEAN CORPUSCULAR HGB CONC 33 g/dl (33.0-37.0); MEAN PLATELET VOLUME 10.8 fl (7.4-10.4); MONO # 1.2 K/mm3 (0.1-0.6); MONO % 8.4 % (1.7-9.3); PLATELET COUNT 203 K/mm3 (130-400); REDCELL DISTRIBUTION WIDTH-CV 13.5 % (11.5-14.5)
[2022-04-25 23:23] LABS: COLLECTION METHOD CLEAN CATCH
[2022-04-25 23:28] LABS: URINE APPEARANCE Clear (CLEAR/HAZY); URINE COLOR Yellow (YELLOW); URINE GLUCOSE Negative (NEGATIVE); URINE KETONE Negative (NEGATIVE); URINE PROTEIN(semi-quant) Negative (NEGATIVE)
[2022-04-25 23:29] LABS: URINE BLOOD TRACE-INTACT (NEGATIVE); URINE NITRATE Negative (NEGATIVE); URINE UROBILINOGEN 0.2 E.U/dL (0.2-1.0)
[2022-04-25 23:32] LABS: ALBUMIN 3.9 gm/dL (3.4-4.8); BILIRUBIN,TOTAL 1.7 mg/dL (0.2-1.2); CALCIUM 9.8 mg/dL (8.4-10.2); CREATININE, serum 0.76 mg/dL (0.57-1.11); POTASSIUM 4.1 mmol/L (3.5-4.5)
[2022-04-25 23:38] LABS: MUCOUS Present (NOT PRESENT); SQUAMOUS EPITHELIAL 0-2 /hpf (0-10); URINE BACTERIA Rare /hpf (NONE SEEN); URINE RBC 0-2 /hpf (0-2)
[2022-04-26 02:44] VITALS: BP 149/71; PULSE 97; TEMP 99
[2022-04-26] MEDS ORDERED: TOPROL XL 50MG50 MG PO (03:26)
[2022-04-26] MEDS ORDERED: REMERON 15M15 MG/TA1 PO (03:27)
[2022-04-26 04:18] VITALS: BP 149/71; PULSE 92; TEMP 99
[2022-04-26 06:03] LABS: BASO % 0.2 % (0.0-2.0); EOS % 0.3 % (0.0-4.0); GRAN % 72.6 % (42.2-75.2); HEMATOCRIT 39.1 % (37.0-47.0); HEMOGLOBIN 12.4 g/dl (12.5-16.0); LYMPH # 2.9 K/mm3 (1.2-3.4); LYMPH % 19.2 % (20.0-51.0); MEAN CELL VOLUME 85 fl (80.0-100.0); MEAN CORPUSCULAR HEMOGLOBIN 27 pg (27-31); MEAN CORPUSCULAR HGB CONC 32 g/dl (33.0-37.0); MEAN PLATELET VOLUME 10.9 fl (7.4-10.4); MONO # 1.1 K/mm3 (0.1-0.6); MONO % 7.4 % (1.7-9.3); PLATELET COUNT 212 K/mm3 (130-400); REDCELL DISTRIBUTION WIDTH-CV 13.7 % (11.5-14.5)
[2022-04-26 06:20] LABS: CALCIUM 9.3 mg/dL (8.4-10.2); CREATININE, serum 0.72 mg/dL (0.57-1.11); MAGNESIUM 1.9 mg/dL (1.6-2.6); POTASSIUM 3.9 mmol/L (3.5-4.5)
--- NOTE | 2022-04-26 07:05 | NUR ---
PATIENT ARRIVED TO FLOOR APPROX 0320. PATIENT RECEIVED PRN TYLENOL FOR C/O HEADACHE. PATIENT RECEIVED ORDERED FLAGYL AND CIPRO IV AND TOLERATED WELL. PATIENT UP TO VOID SEVERAL TIMES. PATIENT CONCERNED SHE WILL NOT BE ABLE TO SLEEP DUE TO NOT HAVING REMERON OR AMBIEN. EDUCATED PATIENT ON CONSEQUENCES OF TAKING SLEEPING MEDICATION AT 0400. REINFORCEMENT NEEDED.
[2022-04-26 08:20] VITALS: BP 119/56; PULSE 77; TEMP 98.6
[2022-04-26 08:23] LABS: ALBUMIN 3.6 gm/dL (3.4-4.8); BILIRUBIN,DIRECT 0.8 mg/dL (0.0-0.5); TOTAL PROTEIN 6.5 gm/dL (6.2-8.1)
--- NOTE | 2022-04-26 09:45 | NUR ---
Initial visit; Patient thanked Health And Safety Technician for listening and offering Prayer and options to volunteer, which is what Iris thinks she would like to do. Health And Safety Technician continued to listen and offer empathy and suggestions and eventually God's blessings.
--- NOTE | 2022-04-26 10:33 | NUR ---
PATIENT ALERT AND ORIENTED X4. VSS. PATIENT HERE FOR DIVERTICULITIS. PATIENT DENIES PAIN AT THIS TIME. IV TO RIGHT AC INT, FLUSHES WELL. IV TO LEFT FOREARM WITH NS RUNNING AT 125. ASSESSMENT PERFORMED. AM MEDS ADMINISTERED. PATIENT RESTING IN CHAIR, CALL LIGHT NEAR.
--- NOTE | 2022-04-26 12:26 | NUR ---
quill worker met with patient to complete intake and discuss discharge plan. Patient reports that she lives at home with her C ([phone]) in [place]. Patient reports that she is independent with her ADL's and does not utilize any DME to assist with mobility. She has no home oxygen need. PCP is Dr. Josue and she utilizes [facility] for prescriptions. Patient states that she does have a DPOA-HC established listing her as her agent. Patient is planning on returning home once medically ready. SW collaborated with patient's RN who states the patient has been independent in her room and aambulating with no problems. Discharge plan: Home with spouse
[2022-04-26 12:36] VITALS: BP 120/50; PULSE 65; TEMP 98.3
[2022-04-26 16:37] VITALS: BP 122/55; PULSE 80; TEMP 97.8
[2022-04-26 19:59] VITALS: BP 122/63; PULSE 84; TEMP 98.2
--- NOTE | 2022-04-26 22:32 | NUR ---
SHIFT REPORT FROM DAMIAN GAMEZ. PATIENTS IV TO L FA INFILTRATED AND WAS REMOVED. ATTEMPTED RESTART BY THIS NURSE X2, AND DOMINIQUE GAMEZ X2 WITH NO SUCCESS, MANAGER CLINICAL STARTED 22 G IV TO R FA. NS AND FLAGYL INFUSING AT THIS TIME. PATIENT PASSED SMALL HARD BROWN BM THAT WAS SENT DOWN FOR CDIFF. C/O MILD ABD PAIN AND PRN TYLENOL GIVEN. PATIENT STATES SHE HAS BEEN PASSING GAS. DENIES ADDITIONAL NEEDS. CALL LIGHT IN REACH.
[2022-04-26 22:33] LABS: CLOSTRIDIUM DIFF A/B NEG; CLOSTRIDIUM DIFF A/B INTERP No C.diff present
[2022-04-27] VITALS (7 sets, daily range): BP systolic 110–159; BP diastolic 39–74; PULSE 62–71; TEMP 97.7–98.5
--- NOTE | 2022-04-27 07:15 | NUR ---
Pt doing okay this morning with no complaints. Assisted her with ordering her breakfast. PT reported that she would like to take her medication with her breakfast. She is steady on her feet in the room. No needs verbalized, will continue to monitor
[2022-04-27 08:07] LABS: BASO % 0.4 % (0.0-2.0); EOS # 0.2 K/mm3 (0.0-0.7); EOS % 1.7 % (0.0-4.0); GRAN # 7.5 K/mm3 (1.4-6.5); GRAN % 69.7 % (42.2-75.2); HEMATOCRIT 39.3 % (37.0-47.0); HEMOGLOBIN 12.7 g/dl (12.5-16.0); LYMPH # 2.3 K/mm3 (1.2-3.4); LYMPH % 21.1 % (20.0-51.0); MEAN CELL VOLUME 84 fl (80.0-100.0); MEAN CORPUSCULAR HEMOGLOBIN 27 pg (27-31); MEAN CORPUSCULAR HGB CONC 32 g/dl (33.0-37.0); MEAN PLATELET VOLUME 10.4 fl (7.4-10.4); MONO # 0.7 K/mm3 (0.1-0.6); MONO % 6.7 % (1.7-9.3); PLATELET COUNT 208 K/mm3 (130-400); RED BLOOD COUNT 4.67 M/mm3 (4.10-5.30); REDCELL DISTRIBUTION WIDTH-CV 13.9 % (11.5-14.5)
--- NOTE | 2022-04-27 09:14 | NUR ---
Follow-up visit; Patient appeared glad to see and was excited about getting to shower. Dental Secretary let her know she was just looking in on her hoping she is doing well and will continue to check on her while she is here.
[2022-04-27] MEDS ORDERED: PROBIOTIC ACID1 EAC3 PO (14:05)
[2022-04-27] MEDS ORDERED: CIPRO750 MG PO (14:09)
[2022-04-27] MEDS ORDERED: FLAGYL500 MG PO (14:09)
--- NOTE | 2022-04-27 14:35 | NUR ---
PT A/0X4, COMPLAINED ABDOMINAL PAIN, TYLENOL GIVEN, DENIES SOA, LUNGS CTA, QUESTIONS AND CONCERNS ADDRESSED, SHOWERED THIS MORNING, VISITED, WILL CONTINUE TO MONITOR.
--- NOTE | 2022-04-27 16:27 | NUR ---
construction ironworker met with patient to discuss discharge planning. Patient lives with at home with her spouse and plans to return there upon discharge. Patient states she is independent with her activities of daily living. Patient's primary care provider is Dr Josue and utilizes the support of Isabell, a director of social media marketing in her physician's office. Patient states she does not have any issues obtaining her prescriptions and can utilize [facility] for any expensive medication. Patient states she had advance directs.
--- NOTE | 2022-04-27 21:02 | NUR ---
PATIENT AT BENCH ON ROOM ENTRY. AT BEDSIDE. DINNER CAME LATE BUT PATIENT TOLERATED MEAL WITHOUT ISSUE. HS MEDS PER EMAR. IV TO R FA IS A LITTLE RED BUT FLUSHES WELL. DENIES PAIN. CALL LIGHT IN REACH.
[2022-04-28 00:46] VITALS: BP 139/59; PULSE 65; TEMP 97.8
[2022-04-28 04:19] VITALS: BP 155/74; PULSE 72; TEMP 97.6
[2022-04-28 07:26] VITALS: BP 145/74; PULSE 71; TEMP 98.5
--- NOTE | 2022-04-28 09:00 | NUR ---
Pt doing okay this morning. Minimal to no pain complaints. She is tolerating general diet, hoping to go home today.
[2022-04-28 12:00] VITALS: BP 103/72; PULSE 72; TEMP 98
--- NOTE | 2022-04-28 12:00 | NUR ---
Pt has been up walking in the halls independently, minimal pain complaints. Pt does have discharge orders. Pt stated that her lunch should arrive around 1230 and her will be by early afternoon to pick her up. No needs or complaints, will continue to monitor
--- NOTE | 2022-04-28 13:05 | NUR ---
PT ALERT AND ORIENTED X4, STABLE, WAITING FOR HER TO COME PICK HER UP, DISCHARGE INSTRUCTIONS GIVEN, FF UP APPOINTMENT DATE AND TIME GIVEN, QUESTIONS AND CONCERNS ADDRESSED, INT TAKEN OUT.
--- NOTE | 2022-04-28 13:25 | NUR ---
PT LEFT THE FLOOR AT 1318 WITHOUT THE NURSE ESCORTING HER, CHARGE NURSE INFORMED.
--- NOTE | 2022-04-28 13:32 | NUR ---
Follow-up visit; Iris was using the telephone before she left and Economic Development Manager had attempted to follow-up several times so just interrupted and wished her well and God's blessings. She thanked and dominic correia.
== END 2022-04-28 13:18 | disposition home or self-care (01) | DRG 392 ==
LOC: COL.ER 21:56 → SURG 04-26 01:38
PROVIDERS: Internal Medicine Gastroenterology; Nurse Practitioner Primary Care; Student in an Organized Health Care Education/Training Program; ADMIT Internal Medicine
DX: K57.20 Diverticulitis of large intestine with perforation and abscess without bleeding (principal); R65.10 Systemic inflammatory response syndrome (SIRS) of non-infectious origin without acute organ dysfunction; I25.10 Atherosclerotic heart disease of native coronary artery without angina pectoris; Z66 Do not resuscitate; I10 Essential (primary) hypertension; E78.5 Hyperlipidemia, unspecified; K21.9 Gastro-esophageal reflux disease without esophagitis; G47.00 Insomnia, unspecified; R91.1 Solitary pulmonary nodule; Z20.822 Contact with and (suspected) exposure to COVID-19; D72.829 Elevated white blood cell count, unspecified; E80.4 Gilbert syndrome; K52.9 Noninfective gastroenteritis and colitis, unspecified; Z95.5 Presence of coronary angioplasty implant and graft; I25.2 Old myocardial infarction; Z87.19 Personal history of other diseases of the digestive system; Z79.82 Long term (current) use of aspirin; Z90.49 Acquired absence of other specified parts of digestive tract; Z88.0 Allergy status to penicillin; Z88.8 Allergy status to other drugs, medicaments and biological substances; Z88.1 Allergy status to other antibiotic agents; Z91.040 Latex allergy status; Z72.89 Other problems related to lifestyle
CPT/HCPCS: OP; J0744; J2270; J2405; J7030; Q9967

== ENCOUNTER 2022-12-02 06:39 | Day surgery (SDC) | payer MEDICARE, OTHER ==
[~2022-12-02] VITALS: Ht 154.9 cm; Wt 61.9 kg
[~2022-12-02 06:39] MED LIST changes: +ALIGN PO; +CIPRO750 MG PO; +METAMUCIL0.52 G1; +PROBICHEW 21 B1 EACH PO; +PROBIOTIC ACID1 EAC3 PO; +REMERON 15M15 MG/TA1 PO; +TOPROL XL 50MG50 MG PO; +VANTIN 200200 MG/TAB PO
[2022-12-02 07:10] VITALS: BP 152/77; PULSE 96; TEMP 97.1
[2022-12-02] MEDS ORDERED: CORTEF 20MG TAB20 MG PO (07:50)
[2022-12-02] MEDS ORDERED: REMERON 15M15 MG/TA1 PO (07:50)
[2022-12-02 08:55] VITALS: BP 121/66; PULSE 67; TEMP 97
[2022-12-02 09:10] VITALS: BP 109/63; PULSE 69
--- NOTE | 2022-12-02 09:50 | NUR ---
0855-PT TO BAY 5 PER CART FROM PROCEDURE ROOM. PT AMBULATED TO CHAIR WITH ASSISTANCE. REPORT RECEIVED. VS OBTAINED. CALL LIGHT WITHIN REACH. PT DENIES ANY NEEDS AT THIS TIME. 0900-PT TOLERATING WATER AND MUFFIN. 0915-IV DC'D AT THIS TIME. PT DRESSED WITHOUT ASSISTANCE. 0934-DR COPE VISITING WITH PT AND HER . 0940-DISCHARGE EDUCATION COMPLETED WITH PT AND HER . VERBALIZED UNDERSTANDING OF HOME AND FOLLOW UP CARE. ALL QUESTIONS ANSWERED. DISCHARGE PAPERWORK GIVEN TO PT. 0950-PT OFF UNIT PER WHEELCHAIR. PT DISCHARGED TO HOME WITH PER PERSONAL VEHICLE.
== END 2022-12-02 09:50 | disposition home or self-care (01) ==
LOC: SDCO 06:39
DX: K57.30 Diverticulosis of large intestine without perforation or abscess without bleeding (principal); K22.70 Barrett's esophagus without dysplasia; K29.31 Chronic superficial gastritis with bleeding; K21.00 Gastro-esophageal reflux disease with esophagitis, without bleeding; R19.7 Diarrhea, unspecified; Z79.899 Other long term (current) drug therapy
CPT/HCPCS: J2405; J2704; J7120

== ENCOUNTER 2023-01-02 08:54 | Emergency (ER) | payer MEDICARE, OTHER ==
[~2023-01-02] VITALS: Ht 157.5 cm; Wt 60.0 kg
[~2023-01-02 08:54] MED LIST changes: +ATARAX 10MG10 MG/TAB PO; +BIAXIN 500MG T500 MG PO; +CALCIUM 600MG+D1 TAB; +COMPLETE MULTI1 TAB PO; +CORTEF 20MG TAB20 MG PO; +ELIQUIS 5MG PO; +PACERONE400 MG PO; +PROTONIX 40MG T40 MG PO; +VANCOCIN H125 MG/CAP PO
[2023-01-02 08:59] VITALS: TEMP 97.2
[2023-01-02 09:19] LABS: BASO # 0.1 K/mm3 (0.0-0.2); BASO % 0.7 % (0.0-2.0); EOS # 0.2 K/mm3 (0.0-0.7); GRAN # 3.7 K/mm3 (1.4-6.5); GRAN % 45.8 % (42.2-75.2); HEMATOCRIT 43.1 % (37.0-47.0); HEMOGLOBIN 13.8 g/dl (12.5-16.0); LYMPH # 3.6 K/mm3 (1.2-3.4); LYMPH % 45.3 % (20.0-51.0); MEAN CELL VOLUME 84 fl (80.0-100.0); MEAN CORPUSCULAR HEMOGLOBIN 27 pg (27-31); MEAN CORPUSCULAR HGB CONC 32 g/dl (33.0-37.0); MEAN PLATELET VOLUME 10.4 fl (7.4-10.4); MONO # 0.5 K/mm3 (0.1-0.6); MONO % 5.8 % (1.7-9.3); PLATELET COUNT 270 K/mm3 (130-400); RED BLOOD COUNT 5.15 M/mm3 (4.10-5.30); REDCELL DISTRIBUTION WIDTH-CV 13.6 % (11.5-14.5)
[2023-01-02 09:42] LABS: ALANINE AMINOTRANSFERASE 22 U/L (0-55); ALBUMIN 4.1 gm/dL (3.4-4.8); ALKALINE PHOSPHATASE 78 U/L (40-150); ANION GAP 8 mmol/L (7-16); AST,SGOT 21 U/L (5-34); BILIRUBIN,TOTAL 1.1 mg/dL (0.2-1.2); BLOOD UREA NITROGEN 12 mg/dL (10-20); CARBON DIOXIDE 25 mmol/L (23-31); CHLORIDE 105 mmol/L (98-107); GLUCOSE 99 mg/dL (70-99); SODIUM 138 mmol/L (136-145); TOTAL PROTEIN 6.9 gm/dL (6.2-8.1)
[2023-01-02 09:51] LABS: TROPONIN-I < 0.010 ng/mL (0.00-0.033)
[2023-01-02 10:29] VITALS: BP 161/83; PULSE 52
== END 2023-01-02 10:29 | disposition home or self-care (01) ==
LOC: COL.ER 08:54
PROVIDERS: Emergency Medicine
DX: I10 Essential (primary) hypertension (principal); Z95.5 Presence of coronary angioplasty implant and graft; Z91.040 Latex allergy status

== ENCOUNTER 2023-05-29 15:45 | Outpatient (RCR) | payer MEDICARE, OTHER | END 2023-06-03 | disposition still patient (30) | LOC: WSPT | DX: M54.2 Cervicalgia (principal); R51.9 Headache, unspecified ==

== ENCOUNTER 2023-06-07 15:03 | Outpatient (RCR) | payer MEDICARE, OTHER | END 2023-06-16 14:53 | disposition home or self-care (01) | LOC: WSPT 15:03 | DX: M54.2 Cervicalgia (principal); R51.9 Headache, unspecified ==

== ENCOUNTER → 2023-09-28 | Outpatient (CLI) | payer MEDICARE, OTHER | LOC: MHCPAIN 14:25 | DX: M54.2 Cervicalgia (principal); M54.12 Radiculopathy, cervical region; M43.12 Spondylolisthesis, cervical region | CPT/HCPCS: G0463 ==

== ENCOUNTER → 2023-11-09 | Outpatient (CLI) | payer MEDICARE, OTHER | LOC: MHCPAIN 13:01 | DX: M54.2 Cervicalgia (principal); M54.12 Radiculopathy, cervical region; M43.12 Spondylolisthesis, cervical region | CPT/HCPCS: G0463 ==

== ENCOUNTER → 2024-01-09 | Outpatient (CLI) | payer MEDICARE, OTHER | LOC: MHCPAIN 15:02 | DX: M54.2 Cervicalgia (principal); M54.12 Radiculopathy, cervical region; M43.12 Spondylolisthesis, cervical region | CPT/HCPCS: G0463 ==

== ENCOUNTER 2024-02-24 09:45 | Emergency (ER) | payer MEDICARE, OTHER ==
[~2024-02-24] VITALS: Ht 157.5 cm; Wt 64.1 kg
[2024-02-24 09:48] VITALS: BP 159/76; TEMP 97.8
[2024-02-24 12:28] VITALS: PULSE 69
== END 2024-02-24 12:29 | disposition home or self-care (01) ==
LOC: COL.ER 09:45
DX: M54.2 Cervicalgia (principal); I48.91 Unspecified atrial fibrillation; R51.9 Headache, unspecified; M54.9 Dorsalgia, unspecified; Z79.01 Long term (current) use of anticoagulants; Z91.040 Latex allergy status; V89.2XXA Person injured in unspecified motor-vehicle accident, traffic, initial encounter; Y92.410 Unspecified street and highway as the place of occurrence of the external cause

== ENCOUNTER → 2024-04-09 | Outpatient (CLI) | payer MEDICARE, OTHER ==
[~2024-04-09] MED LIST changes: +PACERONE100 MG PO; +REMERON 15M15 MG/TA1
== END ==
LOC: MHCPAIN 15:03
DX: M54.2 Cervicalgia (principal); M54.12 Radiculopathy, cervical region; M43.12 Spondylolisthesis, cervical region
CPT/HCPCS: G0463

== ENCOUNTER 2024-04-18 21:02 | Observation (INO) | payer MEDICARE, OTHER ==
[~2024-04-18] VITALS: Ht 152.4 cm; Wt 63.6 kg
[~2024-04-18 21:02] MED LIST changes: -PACERONE100 MG PO; -REMERON 15M15 MG/TA1
[2024-04-18] MEDS ORDERED: NS 1,000 ML IV ONE (23:30)
[2024-04-18] MEDS ORDERED: Acetaminophen 325 MG TAB PO ONE (23:30)
[2024-04-18] MEDS ORDERED: Ondansetron 4 MG/2 ML VIAL IV ONE (23:30)
[2024-04-19 00:07] LABS: HEMATOCRIT 38.1 % (37.0-47.0); HEMOGLOBIN 12.4 g/dl (12.5-16.0); MEAN CELL VOLUME 86 fl (80.0-100.0); MEAN CORPUSCULAR HEMOGLOBIN 28 pg (27-31); MEAN CORPUSCULAR HGB CONC 33 g/dl (33.0-37.0); MEAN PLATELET VOLUME 10.3 fl (7.4-10.4); PLATELET COUNT 192 K/mm3 (130-400); RED BLOOD COUNT 4.45 M/mm3 (4.10-5.30); REDCELL DISTRIBUTION WIDTH-CV 13.2 % (11.5-14.5)
[2024-04-19 00:18] LABS: BAND 1 % (0-10); LYMPHOCYTE 3 % (20.0-51.0); NEUTROPHILS 93 % (42.0-75.2)
[2024-04-19 00:26] LABS: ALBUMIN 4.2 g/dL (3.4-4.8); BILIRUBIN,TOTAL 1.5 mg/dL (0.2-1.2); C-REACTIVE PROTEIN 3.81 mg/dL (0.00-0.50); CALCIUM 9.6 mg/dL (8.4-10.2); CREATININE, serum 0.76 mg/dL (0.57-1.11); POTASSIUM 4.3 mEq/L (3.5-4.5); TOTAL PROTEIN 7.1 g/dl (6.2-8.1)
[2024-04-19 00:34] LABS: TROPONIN-I 0.063 ng/mL (0.00-0.033)
[2024-04-19 00:36] LABS: COLLECTION METHOD CLEAN CATCH
[2024-04-19 00:41] LABS: URINE APPEARANCE CLEAR (CLEAR/HAZY); URINE BLOOD 1+ (NEGATIVE); URINE COLOR YELLOW (YELLOW); URINE GLUCOSE 1+ (NEGATIVE); URINE KETONE 2+ (NEGATIVE); URINE NITRATE NEGATIVE (NEGATIVE); URINE PROTEIN(semi-quant) TRACE (NEGATIVE); URINE UROBILINOGEN 0.2 E.U/dL (0.2-1.0)
[2024-04-19] MEDS ORDERED: PACERONE100 MG PO (01:14)
[2024-04-19] MEDS ORDERED: REMERON 15M15 MG/TA1 (01:21)
[2024-04-19] MEDS ORDERED: Morphine 4 MG/ML VIAL IV ONE (02:45)
[2024-04-19] MEDS ORDERED: Acetaminophen 325 MG TAB PO PRN ×2 (04:00→05:00)
[2024-04-19] MEDS ORDERED: Polyethylene Glycol 3350 17 GM PDS PO PRN (04:00)
[2024-04-19] MEDS ORDERED: Ondansetron 4 MG/2 ML VIAL IV PRN ×2 (04:00→05:00)
[2024-04-19] MEDS ORDERED: Docusate Sodium 100 MG CAP PO PRN (05:00)
[2024-04-19] MEDS ORDERED: Heparin 5,000 UNITS/ML 1 ML VIAL SQ SCH ×2 (08:00)
--- NOTE | 2024-04-19 08:49 | NUR ---
PATIENT JUST ARRIVED TO UNIT. CARDIOLOGY PAGED, LETTER OF CREDIT DOCUMENT EXAMINER AWARE OF CONSULT PATIENT MADE NPO.
[2024-04-19] MEDS ORDERED: Pantoprazole 40 MG in NS 10 ML IV SCH (09:00)
--- NOTE | 2024-04-19 09:00 | NUR ---
PATIENT ARRIVED TO UNIT AWAKE ALERT AND ORIENTED. CALL LIGHT WTIHIN REACH. PATIENT IS SITTING UP IN THE RECLINER, AND IS AWARE OF NPO ORDERS
[2024-04-19 09:05] VITALS: BP 157/62; PULSE 68; TEMP 98
[2024-04-19 11:14] VITALS: BP 144/59; PULSE 60; TEMP 98.2
[2024-04-19] MEDS ORDERED: Apixaban 5 MG TABLET PO SCH (12:40)
[2024-04-19 12:45] VITALS: BP_SYST 144
[2024-04-19] MEDS ORDERED: Spironolactone 12.5 MG TAB PO SCH (13:00)
[2024-04-19] MEDS ORDERED: Amiodarone 200 MG TAB PO SCH (13:00)
--- NOTE | 2024-04-19 13:25 | NUR ---
PATINET AWAKE AND ALERT, RESTING IN BED. CALL LIGHT WTIHIN REACH, POST OP VITALS INITIATED. PATIENT DENIES ANY NEEDS OR COMPLAINTS AT THIS TIME.
--- NOTE | 2024-04-19 14:30 | NUR ---
CONCHIS GIVEN DISCHARGE INSTRUCTIONS AND EDUCATION. PATIENT VERBALIZES UNDERSTANDING OF THE ABOVE. PATIENT IV AND TELE REMOVED. CALOS AWAITING HER RIDE
--- NOTE | 2024-04-19 14:35 | NUR ---
P[ATIENT TAKEN TO ER ENTRANCE VIA WHEELCHAIR WHERE SHE LEFT INSTABLE CONDITION WITH HER .
--- NOTE | 2024-04-19 14:37 | NUR ---
Blocker Polishing spoke with patient's nurse to inquire if there were any discharge planning needs. Patient admitted this morning and being discharged today. RN stated there were no discharge needs and patient will go home. SW met with his patient yesterday as her was a patient here. No needs identified for patient during this time as well.
[2024-04-19] MEDS ORDERED: Atorvastatin 40 MG TAB PO SCH (21:00)
[2024-04-19] MEDS ORDERED: Mirtazapine 15 MG TAB PO SCH (21:00)
[2024-04-20] MEDS ORDERED: CIPRO 500MG TA500 MG PO (20:26)
[2024-04-20] MEDS ORDERED: FLAGYL500 MG PO (20:26)
== END 2024-04-19 14:35 | disposition home or self-care (01) ==
LOC: COL.ER 21:02 → MEDICAL 04-19 05:01
PROVIDERS: Nurse Practitioner; ADMIT Internal Medicine
DX: U07.1 COVID-19 (principal); R79.89 Other specified abnormal findings of blood chemistry; I25.10 Atherosclerotic heart disease of native coronary artery without angina pectoris; I10 Essential (primary) hypertension; E78.5 Hyperlipidemia, unspecified; K21.9 Gastro-esophageal reflux disease without esophagitis; I48.91 Unspecified atrial fibrillation; G47.00 Insomnia, unspecified; Z95.5 Presence of coronary angioplasty implant and graft; Z86.73 Personal history of transient ischemic attack (TIA), and cerebral infarction without residual deficits; Z79.01 Long term (current) use of anticoagulants
CPT/HCPCS: G0378; J1644; J2270; J2405; J2470; J7030

== ENCOUNTER 2024-04-20 15:50 | Emergency (ER) | payer MEDICARE, OTHER ==
[~2024-04-20] VITALS: Ht 154.9 cm; Wt 63.6 kg
[~2024-04-20 15:50] MED LIST changes: +PACERONE100 MG PO; +REMERON 15M15 MG/TA1
[2024-04-20 15:59] VITALS: TEMP 98.5
[2024-04-20 16:59] LABS: COLLECTION METHOD CLEAN CATCH
[2024-04-20 17:01] LABS: BASO % 0.1 % (0.0-2.0); GRAN # 8.3 K/mm3 (1.4-6.5); GRAN % 88.8 % (42.2-75.2); HEMOGLOBIN 11.7 g/dl (12.5-16.0); LYMPH # 0.4 K/mm3 (1.2-3.4); LYMPH % 4.2 % (20.0-51.0); MEAN CELL VOLUME 86 fl (80.0-100.0); MEAN CORPUSCULAR HEMOGLOBIN 28 pg (27-31); MEAN CORPUSCULAR HGB CONC 32 g/dl (33.0-37.0); MEAN PLATELET VOLUME 10.6 fl (7.4-10.4); MONO # 0.6 K/mm3 (0.1-0.6); MONO % 6.6 % (1.7-9.3); PLATELET COUNT 185 K/mm3 (130-400); RED BLOOD COUNT 4.19 M/mm3 (4.10-5.30); REDCELL DISTRIBUTION WIDTH-CV 13.4 % (11.5-14.5)
[2024-04-20 17:05] LABS: HEMATOCRIT 36.1 % (37.0-47.0)
[2024-04-20 17:08] LABS: PH 5.5 (5.0-8.5); URINE APPEARANCE CLEAR (CLEAR/HAZY); URINE BLOOD TRACE (NEGATIVE); URINE COLOR YELLOW (YELLOW); URINE GLUCOSE NEGATIVE (NEGATIVE); URINE KETONE TRACE (NEGATIVE); URINE NITRATE NEGATIVE (NEGATIVE); URINE PROTEIN(semi-quant) 1+ (NEGATIVE)
[2024-04-20 17:18] LABS: ALBUMIN 3.7 g/dL (3.4-4.8); C-REACTIVE PROTEIN 2.3 mg/dL (0.00-0.50); CALCIUM 9.1 mg/dL (8.4-10.2); CREATININE, serum 0.8 mg/dL (0.57-1.11); TOTAL PROTEIN 6.4 g/dl (6.2-8.1)
[2024-04-20] MEDS ORDERED: Iohexol 300 - 100 ML VIAL IV ONE (18:33)
[2024-04-20] MEDS ORDERED: NS 100 ML IV SCH (18:34)
[2024-04-20] MEDS ORDERED: CIPRO 500MG TA500 MG PO (20:26)
[2024-04-20] MEDS ORDERED: FLAGYL500 MG PO (20:26)
[2024-04-20] MEDS ORDERED: Ciprofloxacin 500 MG TAB PO ONE (20:30)
[2024-04-20] MEDS ORDERED: metroNIDAZOLE 250 MG TAB PO ONE (20:30)
[2024-04-20 21:06] VITALS: BP 120/67; PULSE 66
== END 2024-04-20 21:06 | disposition home or self-care (01) ==
LOC: COL.ER 15:50
PROVIDERS: Nurse Practitioner
DX: A09 Infectious gastroenteritis and colitis, unspecified (principal); U07.1 COVID-19; Z91.040 Latex allergy status
CPT/HCPCS: Q9967